=== PATIENT | male | born 1935 | race Caucasian/White ===

== ENCOUNTER → 2017-07-08 | Outpatient (CLI) | payer MEDICARE, BC ==
[~2017-07-08] MED LIST: APIX2.5T PO; DICL75 PO; GLIM4TAB PO; GLUCTAB PO; LISI-360 PO; LISI-515 PO; LORTA5 PO; METF500T PO; PANT40TA3 PO; PERC5TAB12 PO; PRIL40CA PO; TAB-TAB PO; TAMS5CAP PO; VITA100018 PO
[2017-07-08 12:47] LABS: BLOOD, URINE NEG (NEG); COMMENT (UR) CULT NOT INDICATED; CULTURE IF INDICATED CULT NOT INDICATED; GLUCOSE,URINE NEG (NEG); HYALINE CAST, URINE 1 /lpf (RARE); KETONE, URINE NEG (NEG); NITRITE,URINE NEG (NEG); PH, URINE 5.5 (5.0-8.5); URINE COLOR YELLOW (YELLW/STRAW)
--- NOTE | 2017-07-08 13:06 | RADRPT ---
EXAM DATE/TIME: 07/08/2017 12:52 [facility] COMPARISON: No previous studies available for comparison. INDICATIONS : Evaluate for penumonia, pneumorthorax, or communicable disease. Pre op for lung biopsy. MEDICAL HISTORY : Hypertension. Gastroesophageal reflux disease. Diabetes mellitus type II. SURGICAL HISTORY : Pacemaker. ENCOUNTER: Initial ACUITY: 1 day PAIN SCORE: 0/10 LOCATION: chest FINDINGS: PA and lateral views of the chest show blunting of left costophrenic angle. No discrete infiltrate. H eart is normal in size. Pacing device overlies the right chest. A degenerative thoracic spine observe d. No pneumothorax. CONCLUSION: 1. Either pleural scarring or small effusion blunting the left costophrenic angle. Lester Rodriguez Jr., MD on July 08, 2017 at 13:04 Board Certified Radiologist. This report was verified electronically.
[2017-07-08 13:09] LABS: HEMATOCRIT 41.8 % (39.0-51.0); MEAN CELL VOLUME 88.6 FL (80.0-100.0); MEAN CORPUSCULAR HEMOGLOBIN 29.4 PG (27.0-34.0); MEAN CORPUSCULAR HGB CONC 33.1 % (32.0-36.0); PLATELET COUNT 171 TH/MM3 (150-450); RED BLOOD COUNT 4.71 MIL/MM3 (4.50-5.90); RED CELL DISTRIBUTION WIDTH 14.9 % (11.6-17.2); REVIEW FLAG FINAL; WHITE BLOOD COUNT 7.4 TH/MM3 (4.0-11.0)
[2017-07-08 13:11] LABS: ANION GAP 6 MEQ/L (5-15); AST (GOT) 18 U/L (15-37); BICARBONATE 24.1 MEQ/L (21.0-32.0); BLOOD UREA NITROGEN 22 MG/DL (7-18); CHLORIDE 110 MEQ/L (98-107); GLOMERULAR FILTRATION RATE 59 ML/MIN (>89); GLUCOSE,FASTING 147 MG/DL (74-99); POTASSIUM 5.6 MEQ/L (3.5-5.1); SODIUM (NA) 140 MEQ/L (136-145)
[2017-07-08 13:12] LABS: ALT (GPT) 27 U/L (12-78)
[2017-07-08 13:13] LABS: APTT (PATIENT) 27.1 SEC (24.3-30.1); PROTHROMBIN TIME - PATIENT 10.9 SEC (9.8-11.6)
[2017-07-08 13:14] LABS: ALKALINE PHOSPHATASE 62 U/L (45-117); TOTAL BILIRUBIN ADULT 0.3 MG/DL (0.2-1.0)
--- NOTE | 2017-07-09 14:24 | EKG ---
Date Performed: 07/08/2017 Time Performed: 12:03:32 PTAGE: 82 years EKG: ELECTRONIC ATRIAL PACEMAKER ELECTRONIC VENTRICULAR PACEMAKER MARKED ST DEPRESSION, CONSIDER SUBENDOCARDIAL INJURY ABNORMAL ECG NO PREVIOUS TRACING DOCTOR: Igor Dudley Interpretating Date/Time 07/09/2017 14:18:26
--- NOTE | 2017-07-14 10:55 | RSPPFT ---
DATE OF PROCEDURE: 07/08/17 COMMENTS: Spirometry with FVC of 3.3, FEV1 of 2.0, FEV1/FVC ratio at 62%. Post-bronchodilator study was not performed. IMPRESSION: 1. Moderate airways obstruction. 2. Post-bronchodilator study was not performed.
== END ==
LOC: CPRE 10:59
PROVIDERS: ATTEND Thoracic Surgery (Cardiothoracic Vascular Surgery)
DX: Z01.810 Encounter for preprocedural cardiovascular examination (principal); R91.1 Solitary pulmonary nodule; Z01.812 Encounter for preprocedural laboratory examination; Z01.818 Encounter for other preprocedural examination; Z01.811 Encounter for preprocedural respiratory examination; Z79.01 Long term (current) use of anticoagulants
CPT/HCPCS: 36415; 71020; 80053; 81001; 85027; 85610; 85730; 93005; 94010

== ENCOUNTER 2017-07-10 05:37 | Inpatient (IN) | payer MEDICARE, BC ==
[~2017-07-10] VITALS: Ht 175.3 cm; Wt 84.5 kg
[2017-07-10] VITALS (13 sets, daily range): BP systolic 117–155; BP diastolic 56–70; PULSE 68–84; RESP 18; TEMP 97.7–98.1; O2SAT 95–98
[~2017-07-10 05:37] MED LIST changes: -DICL75 PO; -GLUCTAB PO; -LISI-360 PO; -LORTA5 PO; -PERC5TAB12 PO; -PRIL40CA PO; -TAB-TAB PO; -TAMS5CAP PO
[2017-07-10] MEDS ORDERED: METOPROLOL TARTRATE 25 MG TAB PO PRN (06:15)
[2017-07-10] MEDS ORDERED: SODIUM CHLORID 0.9% 500 ML IV PRN (06:15)
[2017-07-10] MEDS ORDERED: CHLORHEXIDINE GLUCONATE 2 % 1 PACK (2 CLOTHS) TOPICAL PRN (06:15)
[2017-07-10] MEDS ORDERED: INSULIN HUMAN REGULAR 1,000 UNITS/10 ML VIAL SQ PRN (06:15)
[2017-07-10] MEDS ORDERED: LACTATED RINGER'S 1000 ML IV PRN (06:15)
[2017-07-10] MEDS ORDERED: POVIDONE IODINE 5% (ANTISEPSIS KIT) 4 APPLICATIONS EACH NARE PRN (06:15)
[2017-07-10] MEDS ORDERED: VANCOMYCIN HCL 1000 MG VIAL ONE (07:24)
[2017-07-10] MEDS ORDERED: BUPIVACAINE HCL PF 0.5% 30 ML VIAL ONE ×2 (07:24→10:51)
[2017-07-10] MEDS ORDERED: ONDANSETRON HCL 4 MG/2 ML VIAL IV PUSH PRN (11:15)
[2017-07-10] MEDS ORDERED: ACETAMINOPHEN 325 MG TAB PO PRN (11:15)
[2017-07-10] MEDS ORDERED: MAGNESIUM HYDROXIDE SUSP 30 ML CUP PO PRN (11:15)
[2017-07-10] MEDS ORDERED: POTASSIUM CHLOR 20 MEQ PREMIX 100 ML IV PRN (11:15)
[2017-07-10] MEDS ORDERED: Post-op Orders (for Pharmacy) MISC OTHER ONE (11:15)
[2017-07-10] MEDS ORDERED: RESP: ALBUTEROL 2.5 MG/3 ML NEB (PRN) NEB (11:15)
[2017-07-10] MEDS ORDERED: NALOXONE HCL 0.4 MG/ML AMP IV PUSH PRN (11:15)
--- NOTE | 2017-07-10 11:34 | PD.OP ---
cc: Carmina Rodríguez MD; Nik Das MD Operative Report Date of Surgery: Jul 10, 2017 Preoperative Diagnosis: (1) Pleural mass Postoperative Diagnosis: same Procedure: Attempted left VATS for exploration and pleural biopsies converted to thoracotomy. Anesthesia: Dr. Rush Surgeon: Carmina Rodríguez Size Marker(s): Pool Ybarra Operation and Findings: After adequate general anesthesia the patient was placed in the right lateral decubitus position and the left chest was prepped and draped in usual manner. A small anterior port incision was performed and electrocautery was used to obtain hemostasis and carry the dissection down through the fascia. Dense adhesions were encountered with obliteration of the left pleural space. Insufflation was attempted to create a dissection plane and allow adequate visualization with the thoracoscope. Unfortunately, this was not successful despite similar attempts through a lateral and posterior port. Therefore, a small left lateral thoracotomy was performed and electrocautery was used for hemostasis and carry the dissection down to the latissimus dorsi which was divided. The serratus was mobilized and retracted anteriorly. The 6th interspace was developed with dense adhesions and obliteration of the pleural space. A plane was developed between the visceral and parietal pleurae down posteriorly to the area of abnormality on the CT-PET scan. There was some pleural thickening there. Generous pleural biopsies were acquired and a frozen section did not disclose any malignant cells. A 32F right angle chest tube was positioned through the anterior port, and secured with a 0-silk suture. The lung was ventilated and no significant air leaks were found. . The wound was closed in layers approximately in the ribs initially with a 2. Vicryl figure -of-eight suture. The latissimus dorsi was reapproximated using a running 0 Vicryl suture. The subcutaneous tissues approximated running 2-0 Vicryl suture and the skin was approximated using running 4-0 Monocryl subcuticular stitch.. All sponge and history counts were correct at the close the procedure and the patient was transferred to the PACU for recovery purpose Carmina Rodríguez MD Jul 10, 2017 11:34
[2017-07-10] MEDS ORDERED: *morphine SULFATE 8 MG/ML PERIprocedure ONLY ONE ×2 (11:57→12:08)
[2017-07-10] MEDS: SODIUM CHLOR 0.9% 1000 ML INJ 1,000 ML IV SCH (12:10)
[2017-07-10] MEDS ORDERED: *HYDROmorphone PF 1 MG VIAL PERIprocedural Use ONLY ONE (12:28)
[2017-07-10] MEDS ORDERED: SODIUM CHLORIDE 0.9% FLUSH 10 ML FLUSH IV FLUSH PRN (12:45)
--- NOTE | 2017-07-10 13:08 | RADRPT ---
EXAM DATE/TIME: 07/10/2017 11:53 [facility] COMPARISON: No previous studies available for comparison. INDICATIONS : Post thoracotomy MEDICAL HISTORY : Hypertension. Gastroesophageal reflux disease. Diabetes mellitus type II. SURGICAL HISTORY : Pacemaker. ENCOUNTER: Subsequent ACUITY: 3 days PAIN SCORE: 10/10 LOCATION: Bilateral chest FINDINGS: The heart is enlarged. Patchy infiltrates are noted bilaterally consistent with pulmonary edema vers us pneumonia. Left-sided chest tube is noted. No pneumothorax is noted. A right subclavian dual le ad pacemaker has its tips in the right atrium and right ventricle. There is no pneumothorax on the r ight. Degenerative changes are noted throughout the thoracic spine. There is some subcutaneous emph ysema within the left chest wall. CONCLUSION: 1. Diffuse patchy infiltrates consistent with pulmonary edema versus pneumonia. 2. Cardiomegaly. 3. No pneumothorax. 4. Some subcutaneous emphysema within the left chest wall. Cassius Greene MD on July 10, 2017 at 12:29 Board Certified Radiologist. This report was verified electronically.
--- NOTE | 2017-07-10 13:58 | PD.CAR.PN ---
CVT Progress Note Subjective/Hospital Course: 82/ pt of Dr Das found to have an abnormal CT finding / CT-PET was done and shoed hypermetabolic nodules with a larger nodule in left lower lobe with pleural thickening which was also hypermetabolic. Hx of asbestos exposure at [email or web address] PMH: Afib ( eliquis at home ) , asbestosis, ASHD, CKD stage 111, DM GERD, HTN, HLP, CAD/[place], pacer insitu for SSS surgery: Attempted left VATS for exploration and pleural biopsies converted to thoracotomy.07/10 Objective: Vital Signs Date Time Temp Pulse Resp B/P (MAP) Pulse Ox O2 Delivery O2 Flow Rate FiO2 07/10/17 13:00 69 15 124/60 (81) 95 Nasal Cannula 3 07/10/17 12:45 69 12 132/63 (86) 97 Nasal Cannula 3 07/10/17 12:30 69 12 136/60 (85) 97 Nasal Cannula 3 07/10/17 12:15 69 12 140/64 (89) 97 Nasal Cannula 3 07/10/17 12:00 69 18 134/61 (85) 97 Nasal Cannula 3 07/10/17 11:43 97.4 76 17 120/61 (80) 100 Nasal Cannula 3 07/10/17 06:24 97.6 69 18 164/74 (104) 100 (1) Diabetes mellitus (2) GERD (gastroesophageal reflux disease) (3) Hyperlipemia (4) Hypertension (5) Afib (6) Pleural mass Geno Moulton Jul 10, 2017 13:58
[2017-07-10] MEDS ORDERED: MORPHINE SULFATE 30 MG/30 ML PCA IV SCH (14:00)
[2017-07-10] MEDS: PCA - TOTAL MG MORPHINE DELIVERED PER SHIFT SCH ×2 (14:00→22:00)
--- NOTE | 2017-07-10 14:03 | HHI.FF ---
Face to Face Verification Diagnosis: (1) left thoracotomy (2) Pleural mass (3) Diabetes mellitus (4) Hyperlipemia (5) GERD (gastroesophageal reflux disease) (6) Hypertension (7) Afib Home Health Nursing Order: Signs/symptoms of disease process Medication education-adverse effect Wound care and dressing changes Nursing assessment with vital signs Instructions: Thoracic Surgery patients Mandatory frequency Assess and evaluation, 2-3 x a week for one week Initial visit 1. Review post chest surgery instructions chest precautions, Activity, Elastic hose, Incision care, Driving, Incentive spirometry, Smoking, [place] , Work and other) 2. Need Betadine to paint incision 3. Medication reconciliation 4. Importance of follow up care/ check on appointments 5. Make calendar record temperature daily 6. When to call Home nurse, review instructions, phone list 7. Incentive Spirometry, demonstration Visit 1- Begin discharge instruction for patient family and/ or caregiver using teach back method- 1. Signs and symptoms of infection 2. Disease characteristics 3. Medicines and side effects 4. Foods and nutrition/ appetite 5. Infection control/ hand washing/ hygiene Visit 2- Continue teaching 1. Discharge instructions- include additional information on smoking cessation , Visit 3- Continue teaching- 1. Cough and deep breathing, incision monitoring. For any questions please call : / [facility] Incentive spirometry Q1 hr x 10, while awake, also use acapella device hourly whole awake Sternal Breast Bone Precautions: NO pushing or pulling, ( pt must use sternal pillow to support chest with all activities and with coughing ( takes up to 3 months breast bone to heal ) All females to wear sternal bra , launder as needed Daily incision care: ok to shower daily, no tub bath. Wash all incisions with liquid dial soap, clean wash cloth to each site, rinse and pat dry. Observe for any signs of infection, such as drainage which is dark yellow, heath, green or foul smelling. Immediately report to the surgeon any drainage from the chest incision, or legs, and for any abnormal drainage from the chest tube sites. Notify surgeon if any temp >101.5 degrees F. When specialty dressing removed/ or if you do not have one, continue to shower daily as above, then rinse and pat incision dry and paint with betadine daily x 5 days. Allow steri strips to fall off if you have any. Avoid lotions, creams, salves, oils, etc. for the first month For Dr. Rodríguez patients , please obtain , PA & Lat CXR in 2 weeks, results to Dr. Rodríguez ( prescription will be given) ( ) (Tele: ) , F/U appointment: as per [facility] instructions: PCP in 2 weeks, CV surgeon 2 weeks, Glove Former 3-4 weeks For any questions regarding incisions/ dressing / meds / post op care or above Symptoms, Friday 8am-5pm Heart & Vascular Surgery Office ( Dr. Berman & Dr. Rodríguez), After Hours / Nights (5pm -8am) Weekends and Holidays Please call [facility] ([facility]) Charge Nurse I have seen patient Juancho Márquez on 07/10/17. My clinical findings support the need for the requested home health care services because: Deconditioned w/ increased weakness I certify that my clinical findings support that this patient is homebound because: Post-op weakness Geno Moulton Jul 10, 2017 14:03
[2017-07-10] MEDS: ACETAMINOPHEN 1000 MG/100 ML 100 ML IV SCH ×2 (18:38→20:00)
[2017-07-10] MEDS: metFORMIN HCL 500 MG TAB PO SCH (18:38)
[2017-07-10] MEDS: SODIUM CHLORIDE 0.9% FLUSH 10 ML FLUSH IV FLUSH SCH (21:00)
[2017-07-10] MEDS: DOCUSATE CALCIUM 240 MG CAP PO SCH (22:13)
[2017-07-10] MEDS: PANTOPRAZOLE SOD 40 MG DELAYED RELEASE TAB PO SCH (22:13)
[2017-07-10] MEDS: GLIMEPIRIDE 4 MG TAB PO SCH (22:13)
[2017-07-11] VITALS (26 sets, daily range): BP systolic 115–144; BP diastolic 56–67; PULSE 68–128; RESP 18–20; TEMP 97.9–99.7; O2SAT 95–99
[2017-07-11] MEDS: ACETAMINOPHEN 1000 MG/100 ML 100 ML IV SCH ×2 (02:00→08:00)
[2017-07-11 04:40] LABS: AUTOMATED NEUTROPHIL # 7.9 TH/MM3 (1.8-7.7); BASOPHIL % 0.3 % (0.0-2.0); EOSINOPHIL # 0.1 TH/MM3 (0-0.4); EOSINOPHIL % 0.8 % (0.0-4.0); HEMATOCRIT 30.7 % (39.0-51.0); HEMO FLAGS DIFF FINAL; LYMPH % 15.9 % (9.0-44.0); LYMPHOCYTE # 1.7 TH/MM3 (1.0-4.8); MEAN CORPUSCULAR HEMOGLOBIN 29.8 PG (27.0-34.0); MEAN CORPUSCULAR HGB CONC 34.3 % (32.0-36.0); MONO % 8.9 % (0.0-8.0); NEUT % 74.1 % (16.0-70.0); PLATELET COUNT 139 TH/MM3 (150-450); RED BLOOD COUNT 3.53 MIL/MM3 (4.50-5.90); RED CELL DISTRIBUTION WIDTH 14.7 % (11.6-17.2); WHITE BLOOD COUNT 10.6 TH/MM3 (4.0-11.0)
[2017-07-11 05:10] LABS: BICARBONATE 20.3 MEQ/L (21.0-32.0)
[2017-07-11 05:22] LABS: CALCIUM-PROTEIN CORRECTED 7.8 MG/DL (8.5-10.1)
[2017-07-11] MEDS: PCA - TOTAL MG MORPHINE DELIVERED PER SHIFT SCH ×3 (05:52→22:00)
--- NOTE | 2017-07-11 06:10 | RADRPT ---
EXAM DATE/TIME: 07/11/2017 04:51 [facility] COMPARISON: No previous studies available for comparison. INDICATIONS : Status post thoracotomy. MEDICAL HISTORY : Hypertension. Gastroesophageal reflux disease. Diabetes mellitus type II. SURGICAL HISTORY : Pacemaker. ENCOUNTER: Subsequent ACUITY: 4 - 6 days PAIN SCORE: 0/10 LOCATION: chest FINDINGS: A single view of the chest demonstrates left basilar pleural-parenchymal density. Left-sided chest tu be without pneumothorax. Right-sided pacemaker unchanged. Osseous structures are intact. CONCLUSION: 1. Decreasing left basilar pleural-parenchymal density. 2. Left-sided chest tube without pneumothorax. Markell Travis MD on July 11, 2017 at 6:08 Board Certified Radiologist. This report was verified electronically.
[2017-07-11] MEDS: SODIUM CHLORIDE 0.9% FLUSH 10 ML FLUSH IV FLUSH SCH ×2 (08:55→21:37)
[2017-07-11] MEDS: GLIMEPIRIDE 4 MG TAB PO SCH ×2 (08:56→17:16)
[2017-07-11] MEDS: metFORMIN HCL 500 MG TAB PO SCH ×2 (08:56→17:16)
[2017-07-11] MEDS: CHOLECALCIFEROL (VIT D3) 1000 UNIT TAB PO SCH (08:57)
[2017-07-11] MEDS ORDERED: PANTOPRAZOLE SOD 40 MG DELAYED RELEASE TAB PO SCH (09:00)
[2017-07-11] MEDS ORDERED: LISINOPRIL 20 MG TAB PO SCH (09:00)
[2017-07-11] MEDS ORDERED: PNEUMOCOCCAL POLYVALENT INJ 25 MCG/0.5 ML SYR IM ONE (10:00)
[2017-07-11] MEDS ORDERED: INFLUENZA VIRUS VACCINE (QUADRIVALENT) 0.5 ML SYR IM ONE (10:00)
--- NOTE | 2017-07-11 15:40 | PD.CAR.PN ---
CVT Progress Note Subjective/Hospital Course: 82/ pt of Dr Das found to have an abnormal CT finding / CT-PET was done and shoed hypermetabolic nodules with a larger nodule in left lower lobe with pleural thickening which was also hypermetabolic. Hx of asbestos exposure at [employer] PMH: Afib ( eliquis at home ) , asbestosis, ASHD, CKD stage 111, DM GERD, HTN, HLP, CAD/[place], pacer insitu for SSS surgery: Attempted left VATS for exploration and pleural biopsies converted to thoracotomy.07/10 07/11 chest tube drained 100cc/ 12 hrs chest tube now to water seal, check cxr in am for possible removal pulm toileting Objective: Vital Signs Date Time Temp Pulse Resp B/P (MAP) Pulse Ox O2 Delivery O2 Flow Rate FiO2 07/11/17 14:29 72 07/11/17 14:00 16 07/11/17 13:09 76 07/11/17 12:16 69 07/11/17 11:33 97.9 80 18 144/64 (90) 97 07/11/17 11:00 73 07/11/17 10:00 70 07/11/17 09:40 96 07/11/17 09:00 68 07/11/17 08:32 98.5 70 18 129/67 (87) 97 07/11/17 08:00 78 07/11/17 07:00 78 07/11/17 06:00 100 07/11/17 05:52 18 07/11/17 05:00 90 07/11/17 04:00 89 07/11/17 04:00 98.2 79 20 121/60 (80) 98 07/11/17 03:00 72 07/11/17 02:00 69 07/11/17 01:00 68 07/11/17 00:00 68 07/11/17 00:00 98.2 70 18 118/59 (78) 97 07/10/17 23:00 68 07/10/17 22:00 74 07/10/17 22:00 18 07/10/17 21:20 97 Nasal Cannula 3.00 07/10/17 21:00 80 07/10/17 20:00 98.1 69 18 117/58 (77) 97 07/10/17 20:00 80 07/10/17 19:00 77 07/10/17 19:00 72 07/10/17 18:00 78 07/10/17 17:00 82 07/10/17 16:00 84 Labs: Laboratory Tests Test 07/11/17 04:26 White Blood Count 10.6 TH/MM3 (4.0-11.0) Red Blood Count 3.53 MIL/MM3 (4.50-5.90) Hemoglobin 10.5 GM/DL (13.0-17.0) Hematocrit 30.7 % (39.0-51.0) Mean Corpuscular Volume 87.0 FL (80.0-100.0) Mean Corpuscular Hemoglobin 29.8 PG (27.0-34.0) Mean Corpuscular Hemoglobin Concent 34.3 % (32.0-36.0) Red Cell Distribution Width 14.7 % (11.6-17.2) Platelet Count 139 TH/MM3 (150-450) Mean Platelet Volume 8.4 FL (7.0-11.0) Neutrophils (%) (Auto) 74.1 % (16.0-70.0) Lymphocytes (%) (Auto) 15.9 % (9.0-44.0) Monocytes (%) (Auto) 8.9 % (0.0-8.0) Eosinophils (%) (Auto) 0.8 % (0.0-4.0) Basophils (%) (Auto) 0.3 % (0.0-2.0) Neutrophils # (Auto) 7.9 TH/MM3 (1.8-7.7) Lymphocytes # (Auto) 1.7 TH/MM3 (1.0-4.8) Monocytes # (Auto) 0.9 TH/MM3 (0-0.9) Eosinophils # (Auto) 0.1 TH/MM3 (0-0.4) Basophils # (Auto) 0.0 TH/MM3 (0-0.2) CBC Comment DIFF FINAL Differential Comment Blood Urea Nitrogen 28 MG/DL (7-18) Creatinine 1.58 MG/DL (0.60-1.30) Random Glucose 181 MG/DL (74-106) Total Protein 5.9 GM/DL (6.4-8.2) Calcium Level 7.2 MG/DL (8.5-10.1) Sodium Level 136 MEQ/L (136-145) Potassium Level 5.0 MEQ/L (3.5-5.1) Chloride Level 108 MEQ/L (98-107) Carbon Dioxide Level 20.3 MEQ/L (21.0-32.0) Anion Gap 8 MEQ/L (5-15) Estimat Glomerular Filtration Rate 42 ML/MIN (>89) Protein Corrected Calcium 7.8 MG/DL (8.5-10.1) Result Diagram: 07/11/1742507/11/17425 Telemetry: Vpaced (1) Diabetes mellitus Plan: insulin sliding scale (2) GERD (gastroesophageal reflux disease) Plan: PPI (3) Hyperlipemia Plan: on statin (4) Hypertension Plan: controlled (5) Afib (6) Pleural mass (7) left thoracotomy Plan: leave chest tube in , to water seal now pulm toileting [facility] ezGeno Mora Jul 11, 2017 15:40
[2017-07-11] MEDS ORDERED: DEXTROSE 50% IN WATER 50 ML VIAL(D50) IV PUSH PRN (15:45)
[2017-07-11] MEDS ORDERED: GLUCAGON 1 MG/ML VIAL OTHER PRN (15:45)
[2017-07-11] MEDS: INSULIN ASPART SUPPLEMENTAL SCALE SQ SCH ×2 (17:00→21:44)
[2017-07-11] MEDS: TAMSULOSIN HCL 0.4 MG CAP PO SCH (18:52)
[2017-07-11] MEDS: PANTOPRAZOLE SOD 40 MG DELAYED RELEASE TAB PO SCH (21:32)
[2017-07-11] MEDS: DOCUSATE CALCIUM 240 MG CAP PO SCH (21:32)
[2017-07-12] VITALS (24 sets, daily range): BP systolic 115–133; BP diastolic 56–63; PULSE 63–96; RESP 16–18; TEMP 97.8–99.3; O2SAT 94–98
[2017-07-12] MEDS: PCA - TOTAL MG MORPHINE DELIVERED PER SHIFT SCH ×3 (06:00→21:25)
--- NOTE | 2017-07-12 06:08 | RADRPT ---
EXAM DATE/TIME: 07/12/2017 05:01 [facility] COMPARISON: CHEST SINGLE AP, July 11, 2017, 4:51. INDICATIONS : Shortness of breath, left parenchymal opacity. MEDICAL HISTORY : Hypertension. Gastroesophageal reflux disease. Diabetes mellitus type II. SURGICAL HISTORY : Pacemaker. ENCOUNTER: Subsequent ACUITY: 4 - 6 days PAIN SCORE: 6/10 LOCATION: Bilateral chest FINDINGS: A single AP semierect view of the chest was obtained and again demonstrates a left-sided chest tube i n place with no pneumothorax. There has been a questionable interval increase in the hazy infiltrate in the left perihilar region and left lung base. The right lung is clear. The right subclavian AV seq uential transvenous pacer remains in place. The heart size is within normal limits. The bony thorax i s intact. CONCLUSION: 1. Left-sided chest tube with no pneumothorax. 2. Questionable mild increase in hazy opacity in left lung. Bret Lewis MD on July 12, 2017 at 6:04 Board Certified Radiologist. This report was verified electronically.
[2017-07-12] MEDS: INSULIN ASPART SUPPLEMENTAL SCALE SQ SCH ×4 (08:00→21:24)
[2017-07-12] MEDS: CHOLECALCIFEROL (VIT D3) 1000 UNIT TAB PO SCH (09:20)
[2017-07-12] MEDS: metFORMIN HCL 500 MG TAB PO SCH ×2 (09:20→17:28)
[2017-07-12] MEDS: SODIUM CHLORIDE 0.9% FLUSH 10 ML FLUSH IV FLUSH SCH ×2 (09:21→20:33)
[2017-07-12] MEDS: GLIMEPIRIDE 4 MG TAB PO SCH ×2 (09:21→15:48)
[2017-07-12] MEDS: TAMSULOSIN HCL 0.4 MG CAP PO SCH (09:21)
--- NOTE | 2017-07-12 09:24 | PD.CAR.PN ---
CVT Progress Note Subjective/Hospital Course: 82/ pt of Dr Das found to have an abnormal CT finding / CT-PET was done and shoed hypermetabolic nodules with a larger nodule in left lower lobe with pleural thickening which was also hypermetabolic. Hx of asbestos exposure at [employer] PMH: Afib ( eliquis at home ) , asbestosis, ASHD, CKD stage 111, DM GERD, HTN, HLP, CAD/[place], pacer insitu for SSS surgery: Attempted left VATS for exploration and pleural biopsies converted to thoracotomy.07/10 07/11 chest tube drained 100cc/ 12 hrs chest tube now to water seal, check cxr in am for possible removal pulm toileting 07/12 Doing well D/C CT today Discharge planning Objective: Vital Signs Date Time Temp Pulse Resp B/P (MAP) Pulse Ox O2 Delivery O2 Flow Rate FiO2 07/12/17 06:01 69 07/12/17 05:00 72 07/12/17 04:30 97.8 68 18 132/63 (86) 96 07/12/17 04:00 69 07/12/17 03:00 68 07/12/17 02:01 69 07/12/17 01:00 63 07/12/17 00:19 98.1 69 18 128/56 (80) 96 07/11/17 22:00 16 07/11/17 20:10 95 07/11/17 20:00 99.7 78 18 115/56 (75) 96 07/11/17 18:00 78 07/11/17 17:32 80 07/11/17 16:24 80 07/11/17 15:43 99.2 71 18 128/60 (82) 99 07/11/17 15:00 71 07/11/17 14:29 72 07/11/17 14:00 16 07/11/17 13:09 76 07/11/17 12:16 69 07/11/17 11:33 97.9 80 18 144/64 (90) 97 07/11/17 11:00 73 07/11/17 10:00 70 07/11/17 09:40 96 Result Diagram: 07/11/176 07/11/17425 (1) Diabetes mellitus Plan: insulin sliding scale (2) GERD (gastroesophageal reflux disease) Plan: PPI (3) Hyperlipemia Plan: on statin (4) Hypertension Plan: controlled (5) Afib (6) Pleural mass (7) left thoracotomy Plan: leave chest tube in , to water seal now pulm toileting [facility] Rhonda Haji MD Jul 12, 2017 09:24
[2017-07-12] MEDS: SODIUM CHLOR 0.9% 1000 ML INJ 1,000 ML IV SCH (10:00)
[2017-07-12] MEDS ORDERED: BISACODYL 10 MG SUPP RECTAL ONE (19:15)
[2017-07-12] MEDS: PANTOPRAZOLE SOD 40 MG DELAYED RELEASE TAB PO SCH (20:33)
[2017-07-12] MEDS: DOCUSATE CALCIUM 240 MG CAP PO SCH (20:33)
[2017-07-13] VITALS (11 sets, daily range): BP systolic 122–139; BP diastolic 57–65; PULSE 68–87; RESP 16–18; TEMP 98.6–99.1; O2SAT 96–97
[2017-07-13] MEDS: PCA - TOTAL MG MORPHINE DELIVERED PER SHIFT SCH (06:00)
[2017-07-13] MEDS: INSULIN ASPART SUPPLEMENTAL SCALE SQ SCH (08:00)
[2017-07-13] MEDS ORDERED: PERC5TAB12 PO (09:07)
[2017-07-13] MEDS ORDERED: TAMS5CAP PO (09:07)
--- NOTE | 2017-07-13 09:12 | HHI.DS ---
Discharge Summary Admission Date Jul 10, 2017 at 05:37 Discharge Date: Jul 13, 2017 Admitting Diagnosis Left pleural mass - hypermetabolic on CT-PET (1) Pleural mass Diagnosis: Principal ICD Codes: J94.9 - Pleural condition, unspecified (2) Diabetes mellitus Diagnosis: Secondary ICD Codes: E11.9 - Type 2 diabetes mellitus without complications (3) Hyperlipemia Diagnosis: Secondary ICD Codes: E78.5 - Hyperlipidemia, unspecified (4) GERD (gastroesophageal reflux disease) Diagnosis: Secondary ICD Codes: K21.9 - Gastro-esophageal reflux disease without esophagitis (5) Hypertension Diagnosis: Secondary ICD Codes: I10 - Essential (primary) hypertension (6) Afib Diagnosis: Secondary ICD Codes: I48.91 - Unspecified atrial fibrillation Procedures Left thoracotomy for biopsy of pleural mass Brief History 82y/o male presents with a hypermetabolic left pleural mass. He had a recent bout of left pneumonia and was hospitalized. Subsequently, he was found to have this mass and was evaluated. Since there is a suspicion of malignancy, he was referred for biopsy. CBC/BMP: 07/11/17 0426 07/11/17 0426 Significant Findings Laboratory Tests Test 07/11/17 04:26 Red Blood Count 3.53 MIL/MM3 (4.50-5.90) Hemoglobin 10.5 GM/DL (13.0-17.0) Hematocrit 30.7 % (39.0-51.0) Platelet Count 139 TH/MM3 (150-450) Neutrophils (%) (Auto) 74.1 % (16.0-70.0) Monocytes (%) (Auto) 8.9 % (0.0-8.0) Neutrophils # (Auto) 7.9 TH/MM3 (1.8-7.7) Blood Urea Nitrogen 28 MG/DL (7-18) Creatinine 1.58 MG/DL (0.60-1.30) Random Glucose 181 MG/DL (74-106) Total Protein 5.9 GM/DL (6.4-8.2) Calcium Level 7.2 MG/DL (8.5-10.1) Chloride Level 108 MEQ/L (98-107) Carbon Dioxide Level 20.3 MEQ/L (21.0-32.0) Estimat Glomerular Filtration Rate 42 ML/MIN (>89) Protein Corrected Calcium 7.8 MG/DL (8.5-10.1) Imaging Last Impressions Chest X-Ray 07/12/17 0600 Signed Impressions: Service Date/Time: Wednesday, July 12, 2017 05:01 - CONCLUSION: 1. Left-sided chest tube with no pneumothorax. 2. Questionable mild increase in hazy opacity in left lung. Bret Lewis MD PE at Discharge chest - decreased BS on left Hospital Course Patient had a stable postop course with chest tube removed on POD 2. He had an issue with urinary retention which responded to flomax. Pt Condition on Discharge: Good Discharge Disposition: Disch w/ Home Health Serv Discharge Instructions DIET: Follow Instructions for: Heart Healthy Diet Activities you can perform: Weight Bearing as Abel, Shower Only-No Bath Activities to avoid: Lifting/Bending, Driving Follow up Referrals: PCP Follow-up with Cecile Brown M.d. Pulmonology with Nik Das MD Surgical with Carmina Rodríguez MD New Orders: X-RAY CHEST PA & LAT - 3 Weeks New Medications: Oxycodone-Acetaminophen (Percocet) 5-325 mg Tab 1 TAB PO Q6H PRN for PAIN for 10 Days, #40 TAB 0 Refills Tamsulosin (Flomax) 0.4 Mg Cap 0.4 MG PO DAILY for Dysuria for 30 Days, #30 CAP 3 Refills Continued Medications: Apixaban (Eliquis) 2.5 Mg Tab 2.5 MG PO BID for Blood Clot Prevention, TAB 0 Refills Cholecalciferol (Vitamin D3) 1,000 Unit Tab 1000 UNITS PO DAILY for Nutritional Supplement, #1 BOTTLE 0 Refills Glimepiride (Glimepiride) 4 Mg Tab 4 MG PO BIDAC for Blood Sugar Management, #60 TAB 0 Refills Lisinopril (Lisinopril) 20 Mg Tab 20 MG PO DAILY, #30 TAB 0 Refills Metformin (Metformin) 500 Mg Tab 500 MG PO BIDPC for Blood Sugar Management, #60 TAB 0 Refills Pantoprazole (Pantoprazole) 40 Mg Tab 40 MG PO DAILY for Reflux, #30 TAB 0 Refills Carmina Rodríguez MD Jul 13, 2017 09:12
[2017-07-13] MEDS: TAMSULOSIN HCL 0.4 MG CAP PO SCH (09:14)
[2017-07-13] MEDS: GLIMEPIRIDE 4 MG TAB PO SCH (09:14)
[2017-07-13] MEDS: metFORMIN HCL 500 MG TAB PO SCH (09:14)
[2017-07-13] MEDS: CHOLECALCIFEROL (VIT D3) 1000 UNIT TAB PO SCH (09:14)
[2017-07-13] MEDS: SODIUM CHLORIDE 0.9% FLUSH 10 ML FLUSH IV FLUSH SCH (09:15)
== END 2017-07-13 11:25 | disposition home health service (06) | DRG 168 ==
LOC: HSDI 05:37 → HCPC 14:05
PROVIDERS: ADMIT Thoracic Surgery (Cardiothoracic Vascular Surgery); ATTEND Thoracic Surgery (Cardiothoracic Vascular Surgery)
PROC: 0W9B30Z Drainage of Left Pleural Cavity with Drainage Device, Percutaneous Approach (ICD-10-PCS; 2017-07-10)
PROC: 0BJQ4ZZ Inspection of Pleura, Percutaneous Endoscopic Approach (ICD-10-PCS; principal; 2017-07-10 08:01)
PROC: 0BBP0ZX Excision of Left Pleura, Open Approach, Diagnostic (ICD-10-PCS; 2017-07-10 08:01)
DX: J94.9 Pleural condition, unspecified (principal); E11.22 Type 2 diabetes mellitus with diabetic chronic kidney disease; I49.5 Sick sinus syndrome; I48.91 Unspecified atrial fibrillation; N18.3 Chronic kidney disease, stage 3 (moderate); E78.5 Hyperlipidemia, unspecified; I12.9 Hypertensive chronic kidney disease with stage 1 through stage 4 chronic kidney disease, or unspecified chronic kidney disease; K21.9 Gastro-esophageal reflux disease without esophagitis; J61 Pneumoconiosis due to asbestos and other mineral fibers; I25.10 Atherosclerotic heart disease of native coronary artery without angina pectoris; Z95.0 Presence of cardiac pacemaker; R33.9 Retention of urine, unspecified; I25.2 Old myocardial infarction; Z23 Encounter for immunization
CPT/HCPCS: 71010; 80048; 82948; 84155; 85025; 86850; 86900; 86901; 86920; 88305; 88331; 90686; 90732; 94150; J0131; J0690; J1170; J1815; J2270; J2405; J3370; J7030; J7120; Q2038

== ENCOUNTER → 2017-11-04 | Outpatient (CLI) | payer MEDICARE, BC ==
[~2017-11-04] MED LIST changes: +PERC5TAB12 PO; +TAMS5CAP PO
== END ==
LOC: PLAB 09:51
PROVIDERS: ATTEND Internal Medicine
DX: R05 Cough (principal)
CPT/HCPCS: 87070; 87205